=== PATIENT | male | born 1990 | race African-American/Black ===

== ENCOUNTER 2016-12-30 14:59 | Emergency (ER) | payer OTHER ==
[~2016-12-30] VITALS: Ht 182.9 cm; Wt 63.5 kg
[~2016-12-30 14:59] MED LIST: ALLEGRA-D 24 H1 EACH; ALLERGY10 M1 PO; PREDNISONE 20 M20 MG PO; PROVENTIL HFA6.7 G1 INH
[2016-12-30] MEDS ORDERED: PREDNISONE 20 M20 MG PO (15:55)
[2016-12-30] MEDS ORDERED: VENTOLIN HFA 1818 GM INH (15:55)
[2016-12-30 16:37] VITALS: BP 118/74
== END 2016-12-30 16:40 | disposition home or self-care (01) ==
LOC: ER 14:59
DX: R05 Cough (principal); R06.2 Wheezing; F17.210 Nicotine dependence, cigarettes, uncomplicated; F10.99 Alcohol use, unspecified with unspecified alcohol-induced disorder